=== PATIENT | female | born 1975 | race Hispanic/Latino ===

== ENCOUNTER → 2018-01-28 | Outpatient (CLI) | payer BC | END | disposition home or self-care (01) | LOC: RAH 07:56 → EDUNIT# 08:00 | PROVIDERS: ATTEND Neuromusculoskeletal Medicine & OMM | DX: M47.892 Other spondylosis, cervical region (principal); M27.40 Unspecified cyst of jaw | CPT/HCPCS: 72141 ==

== ENCOUNTER → 2019-12-12 | Outpatient (CLI) | payer BC | END | disposition home or self-care (01) | LOC: RAH 07:45 | PROVIDERS: ATTEND Neuromusculoskeletal Medicine & OMM | DX: M54.2 Cervicalgia (principal) | CPT/HCPCS: 72141 ==